=== PATIENT | male | born 1965 | race Asian ===

== ENCOUNTER 2021-07-13 12:12 | Emergency (ER) | payer BC, OTHER ==
[2021-07-13] MEDS ORDERED: Ketorolac 30 MG/ML SDV IM ONE (12:47)
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
--- NOTE | 2021-07-13 13:13 | CR ---
[id number] RAD/RAD Ankle Left 3V Min EXAM: RAD Ankle Left 3V Min INDICATION: INJURY, PAIN. COMPARISON: None. DISCUSSION: Mild lateral soft tissue swelling. No acute fracture, dislocation, or other osseous abnormality. Mild enthesopathy at the Achilles tendon attachment on the calcaneus. IMPRESSION: 1. Soft tissue swelling. No acute osseous abnormality. Jimenez Muniz MD 07/13/21 [id number] Thank you for allowing us to participate in the care of your patient.
--- NOTE | 2021-07-13 13:17 | CR ---
[id number] RAD/RAD Knee Left 3V EXAM: RAD Knee Left 3V CLINICAL DATA: TRAUMA COMPARISON: No previous similar exam is available. FINDINGS: There is a suprapatellar fluid collection Joint spaces are preserved No fracture or dislocation is seen. There is no radiopaque foreign body in the soft tissues. There is no air in the soft tissues. There is no cortical thickening or periosteal reaction either. IMPRESSION: SOFT TISSUE HEMATOMA OR EFFUSION Deyvi Snow MD 07/13/21 [id number] Thank you for allowing us to participate in the care of your patient.
== END 2021-07-13 13:20 | disposition home or self-care (01) ==
LOC: VM.ED 12:12
DX: M25.462 Effusion, left knee (principal); M25.572 Pain in left ankle and joints of left foot; M25.522 Pain in left elbow; Z91.048 Other nonmedicinal substance allergy status; Z79.899 Other long term (current) drug therapy
CPT/HCPCS: 73562-LT; 73610-LT; 96372; 99284-25; J1885